=== PATIENT | female | born 1960 | race Caucasian/White ===

== ENCOUNTER 2022-09-18 12:29 | Outpatient (CLI) | payer BC | END 2022-09-18 12:30 | disposition home or self-care (01) | LOC: CSHCT 12:29 | PROVIDERS: ATTEND Surgery | DX: M50.10 Cervical disc disorder with radiculopathy, unspecified cervical region (principal); M47.22 Other spondylosis with radiculopathy, cervical region | CPT/HCPCS: 72125 ==

== ENCOUNTER 2022-11-22 08:20 | Outpatient (CLI) | payer BC | END 2022-11-22 08:21 | disposition home or self-care (01) | LOC: CSHRAD 08:20 | PROVIDERS: ATTEND Surgery | DX: M48.02 Spinal stenosis, cervical region (principal); Z98.1 Arthrodesis status | CPT/HCPCS: 72040 ==